=== PATIENT | female | born 1960 | race Caucasian/White ===

== ENCOUNTER → 2018-02-01 | Outpatient (CLI) | payer BC ==
[~2018-02-01] MED LIST: AMLO-99 PO; ASCO-182 PO; ASPI-1471 PO; BIOT1TAB12 PO; CA C1TAB9 PO; CANA300T PO; CHOL10005 PO; CHRO400T2 PO; CINN500C12 PO; CYA1000 PO; GLUC1TAB13 PO; GOLYTE PO; INSU100V24 SQ; KETC15T TP; KRIL1CAP12 PO; LANI SUBQ; LIRA0.6P3 SQ; METF-409 PO; MONT10TA PO; MONT10TA4 PO; QUIN20TA43 PO; SIMV-49 PO; TURM500C4 PO; UBID10CA11 PO; [UNRECOGNIZED DRUG - CODE] PO; [UNRECOGNIZED DRUG - CODE] SQ
[2018-02-01 10:41] LABS: PLATELET COUNT, AUTOMATED 229 K/uL (150-450)
[2018-02-01 10:58] LABS: LDL CHOLESTEROL 44 mg/dl
== END ==
LOC: LAB 10:22
PROVIDERS: ATTEND Emergency Medicine
DX: E11.9 Type 2 diabetes mellitus without complications (principal); E78.5 Hyperlipidemia, unspecified; E55.9 Vitamin D deficiency, unspecified
CPT/HCPCS: 36415; 82040; 82247; 82306; 82310; 82374; 82435; 82465; 82565; 82947; 83718; 84075; 84132; 84155; 84295; 84450; 84460; 84478; 84520; 85025

== ENCOUNTER → 2018-02-05 | Outpatient (CLI) | payer BC ==
[~2018-02-05] MED LIST changes: +CANA1TAB4 PO
== END ==
LOC: LAB 12:12
PROVIDERS: ATTEND Emergency Medicine
DX: E11.9 Type 2 diabetes mellitus without complications (principal)
CPT/HCPCS: 36415; 83036

== ENCOUNTER → 2018-07-22 | Outpatient (CLI) | payer BC ==
[~2018-07-22] MED LIST changes: +AMLO-113 PO; -AMLO-99 PO; +CEPH500T7 PO; +FLAX100029 PO; -[UNRECOGNIZED DRUG - CODE] PO
== END ==
LOC: LAB 09:43
PROVIDERS: ATTEND Emergency Medicine
DX: E11.9 Type 2 diabetes mellitus without complications (principal)
CPT/HCPCS: 36415; 83036

== ENCOUNTER → 2019-01-09 | Outpatient (CLI) | payer BC ==
[~2019-01-09] MED LIST changes: -AMLO-113 PO; +AMLO-127 PO; +FLAS1EAC ASDIRECTED; +FLAS1KIT SUBQ; +PNEI IM
[2019-01-09 10:41] LABS: PLATELET COUNT, AUTOMATED 260 K/uL (150-450)
[2019-01-09 10:52] LABS: LDL CHOLESTEROL 49 mg/dl
--- NOTE | 2019-01-09 11:59 | RADIOLOGY IMAGING REPORT ---
FACILITY: [facility] PATIENT NAME: Glen Pagan : 1960 MR: [id number] V: [id number] EXAM DATE: ORDERING PHYSICIAN: CONNIE ROSA TECHNOLOGIST: [place] [facility] [place] Pagan : 1960 Visit/Account:[id number] Date of Sevice: 01/09/2019 Exam type: CHEST PA LAT History: Low O2 sats, dyspnea Comparison: None. Findings: The lungs are free of acute effusions, infiltrates or edema. There is mild peribronchial thickening bilaterally The cardiac silhouette is normal in size. The trachea is in midline. There are spondylo tic changes of the thoracic spine. IMPRESSION: 1. There is mild peribronchial thickening bilaterally which could be chronic although an acute perib ronchial inflammatory process is included in the differential diagnosis Report Dictated By: Qi Avelar MD at 01/09/2019 11:54 AM Report E-Signed By: Qi Avelar MD at 01/09/2019 11:55 AM WSN:[id number]
== END ==
LOC: LAB 10:10
PROVIDERS: ATTEND Emergency Medicine
DX: R06.00 Dyspnea, unspecified (principal)
CPT/HCPCS: 36415; 71046; 82040; 82247; 82310; 82374; 82435; 82465; 82565; 82607; 82947; 83718; 83880; 84075; 84132; 84155; 84295; 84443; 84450; 84460; 84478; 84520; 85025; 85379

== ENCOUNTER → 2019-01-14 | Outpatient (CLI) | payer BC | LOC: RESP 01:48 | PROVIDERS: ATTEND Emergency Medicine | DX: R06.83 Snoring (principal); R06.00 Dyspnea, unspecified; I10 Essential (primary) hypertension | CPT/HCPCS: 94060; 94726; 94729 ==

== ENCOUNTER → 2019-03-03 | Outpatient (CLI) | payer BC ==
[~2019-03-03] MED LIST changes: +PHEN-580 PO
== END ==
LOC: US 01:09
PROVIDERS: ATTEND Emergency Medicine
DX: R09.02 Hypoxemia (principal)
CPT/HCPCS: 93306